=== PATIENT | male | born 1945 | race Caucasian/White ===

== ENCOUNTER 2019-11-06 13:50 | Emergency (ER) | payer OTHER ==
[~2019-11-06] VITALS: Ht 167.6 cm; Wt 79.4 kg
[2019-11-06] MEDS ORDERED: LIPITOR20 MG PO (15:46)
[2019-11-06] MEDS ORDERED: ASPIR 8181 MG PO (15:46)
== END 2019-11-06 19:16 | disposition home or self-care (01) ==
LOC: ER 13:50
DX: R42 Dizziness and giddiness (principal)